=== PATIENT | male | born 1965 | race Caucasian/White ===

== ENCOUNTER 2018-12-12 13:38 | Inpatient (IN) | payer MEDICAID ==
[~2018-12-12] VITALS: Ht 188 cm; Wt 150.0 kg
[2018-12-14 14:53] VITALS: BP 160/89
== END 2018-12-14 15:41 | disposition left against medical advice (07) | DRG 280 ==
LOC: ED 14:25 → EDIP 15:19 → 5SO 17:06
PROVIDERS: ADMIT Internal Medicine; ATTEND Internal Medicine
PROC: 02HV33Z Insertion of Infusion Device into Superior Vena Cava, Percutaneous Approach (ICD-10-PCS; principal; 2018-12-12)
PROC: B5181ZA Fluoroscopy of Superior Vena Cava using Low Osmolar Contrast, Guidance (ICD-10-PCS; 2018-12-12)
PROC: B548ZZA Ultrasonography of Superior Vena Cava, Guidance (ICD-10-PCS; 2018-12-12)
DX: I11.0 Hypertensive heart disease with heart failure (principal); I21.A1 Myocardial infarction type 2; J96.01 Acute respiratory failure with hypoxia; D68.59 Other primary thrombophilia; I48.92 Unspecified atrial flutter; N17.9 Acute kidney failure, unspecified; I50.43 Acute on chronic combined systolic (congestive) and diastolic (congestive) heart failure; E03.9 Hypothyroidism, unspecified; E11.65 Type 2 diabetes mellitus with hyperglycemia; E66.01 Morbid (severe) obesity due to excess calories; Z71.3 Dietary counseling and surveillance; E87.6 Hypokalemia; F10.10 Alcohol abuse, uncomplicated; Y90.9 Presence of alcohol in blood, level not specified; F15.90 Other stimulant use, unspecified, uncomplicated; F17.210 Nicotine dependence, cigarettes, uncomplicated; I48.91 Unspecified atrial fibrillation; Z76.5 Malingerer [conscious simulation]; Z91.14 Patient's other noncompliance with medication regimen
CPT/HCPCS: 36415; 36573; 36600; 71045; 80048; 80053; 80061; 80307; 81003; 82803; 82962; 83036; 83735; 83880; 84100; 84439; 84443; 84484; 85025; 85520; 85610; 93005; 93306; 99285; G0378; J1644; J1940; C1751; J1815

== ENCOUNTER 2019-03-13 15:50 | Inpatient (IN) | payer MEDICAID ==
[~2019-03-13] VITALS: Ht 188 cm; Wt 150.5 kg
[~2019-03-13 15:50] MED LIST: LEVO200T5 PO; LISI-170 PO; LISI40TA PO
--- NOTE | 2019-03-13 16:00 | NUR ---
THIS IS A 53 YO MALE BIB [facility] C/O WORSENING SOB OVER THE LAST MONTH. PT WAS ADMITTED TO [facility] ON 03/01 AND LEFT AMA. PT WAS DX'D WITH CHF AND HAS HX OF COPD. PER EMS PT WAS IN 150'S POSS A-FLUTTER EN ROUTE AND SELF-CONVERTED. 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 PT HAS AUDIBLE WHEEZING WITH DIMINSHED LUNGS T/O. PT ADMITS TO USING METH THIS AM. PT AO X 4. SKIN PWD. RESP SLIGHT SHALLOW BUT UNLABORED. PT ABLE TO SPEAK IN 5-10 WORD SENTENCES W/O DIFFICULTY AT REST BUT EASILY BECOMES SOB WITH ACTIVITY. PT ON CONT BP, CARDIAC AND O2 MONITORS. CALL LIGHT WITHIN REACH. WILL CONT TO ISHA PT.
[2019-03-13] MEDS ORDERED: ALBUTEROL/IPRATROPIUM 2.5MG/0.5MG, 3 ML ONE (16:24)
[2019-03-13] MEDS ORDERED: SODIUM CHLORIDE FLUSH 10ML SYR IVF ONE (16:30)
[2019-03-13] MEDS ORDERED: ALBUTEROL/IPRATROPIUM 2.5MG/0.5MG, 3 ML NPPB ONE (16:30)
[2019-03-13] MEDS ORDERED: methylPREDNISolone SOD SUCC 125 MG/2 ML IV ONE (16:30)
[2019-03-13] MEDS ORDERED: methylPREDNISolone SOD SUCC 125 MG/2 ML ONE (16:49)
--- NOTE | 2019-03-13 17:18 | NUR ---
PT HAD AN EPISODE OF 140'S ST RHYTHM PT AGAIN SELF-CONVERTED TO 80'S NSR. GRECIA LEVY AWARE, NO NEW ORDERS RECIEVED. UNABLE TO GET IV WITH MX ATTEMPTS. PT REFUSED ANY MORE IV ATTEMPTS AND LABS AT THIS TIME. GRECIA LEVY MADE AWARE. PT MEDIATED WITH ORAL STEROIDS. PT REPORTS SOME IMPROVEMENT AFTER BREATHING TREATMENT. WILL COTN TO MONITOR PT.
[2019-03-13] MEDS ORDERED: DILTIAZEM 5 MG/ML, 5ML ONE ×2 (17:54→19:22)
[2019-03-13] MEDS ORDERED: DILTIAZEM 5 MG/ML, 5ML IV ONE (18:00)
[2019-03-13 18:03] LABS: BASOPHILS # (AUTO) 0.03 x10^3/uL (0-0.1); BASOPHILS % (AUTO) 1 % (0-1); EOSINOPHILS # (AUTO) 0.18 x10^3/uL (0-0.4); EOSINOPHILS % (AUTO) 2 % (1-7); LYMPHOCYTES # (AUTO) 1.26 x10^3/uL (1-3.4); LYMPHOCYTES % (AUTO) 17 % (22-44); MD NO; MEAN CORPUSCULAR HEMOGLOBIN 30.2 pg (27.5-34.5); MEAN CORPUSCULAR HGB CONC 32.8 g/dL (33.2-36.2); MEAN CORPUSCULAR VOLUME 92.1 fL (81-97); MEAN PLATELET VOLUME 7.9 fL (7.4-10.4); MONOCYTES # (AUTO) 0.68 x10^3/uL (0.2-0.8); MONOCYTES % (AUTO) 9 % (2-9); NEUTROPHILS # (AUTO) 5.31 x10^3/uL (1.8-6.8); NEUTROPHILS % (AUTO) 71 % (42-75); PLATELET COUNT 338 x10^3/uL (130-400); RED BLOOD COUNT 3.86 x10^6/uL (4.38-5.82); RED CELL DISTRIBUTION WIDTH 16.6 % (9.4-14.8)
--- NOTE | 2019-03-13 18:03 | NUR ---
PT CONTINUES TO GO IN AND OUT OF TACHY RHYTHM. 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 DISCUSSED WITH GRECIA LEVY AND IV ACCESS ESTABLISHED WITH PT'S PERMISSION AND PT MEDICATED ORDERED. PT NOW NSR 80'S ON CHURCH BUSINESS ADMINISTRATOR. PT AO X 4. SKIN PWD. RESP SLIGHTLY SHALLOW BUT EVEN AND EQUAL. PT ABLE TO SPEAK IN 5-7 WORD SENTENCES W/O DIFFICULTY. PT ON CONT BP, CARDIAC AND O2 MONITORS. CALL LIGHT WITHIN REACH. WILL CONT TO MONITOR PT.
[2019-03-13 18:18] LABS: ALBUMIN 3.7 g/dL (3.4-5.0); ANION GAP 5 mmol/L (5-15); CALCIUM 8.4 mg/dL (8.5-10.1); CHLORIDE 106 mmol/L (98-107)
[2019-03-13 18:24] LABS: ALANINE AMINOTRANSFERASE 38 U/L (12-78); ALKALINE PHOSPHATASE 92 U/L (45-117); BILIRUBIN,TOTAL 0.5 mg/dL (0.2-1.0); CREATININE 1.52 mg/dL (0.7-1.3); TOTAL PROTEIN 7.4 g/dL (6.4-8.2); TROPONIN I 0.031 ng/mL (0.000-0.045)
--- NOTE | 2019-03-13 18:31 | NUR ---
ASSUMED CARE OF PATIENT. REPORT RECEIVED FROM KEVIN RODGERS. PATIENT TRANSFERED TO ROOM 19.
--- NOTE | 2019-03-13 19:26 | NUR ---
PT WITH HR TO 145 AND GIVEN DILT 20 MG. PT NOW WITH HR AT 85. PT PLACED ON 2L NC O2 DUE TO PSO2 IN THE LOW 90'S.
[2019-03-13] MEDS ORDERED: DILTIAZEM 5 MG/ML, 5ML IVPush ONE (19:30)
[2019-03-13] MEDS ORDERED: SODIUM CHLORIDE FLUSH 10ML SYR IVF PRN (20:30)
--- NOTE | 2019-03-13 20:31 | NUR ---
PT RESTING IN NO DISTRESS WITH VSS AND NC IN PLACE AT 2L
[2019-03-13] MEDS ORDERED: ACETAMINOPHEN 325 MG TABLET PO PRN (21:00)
[2019-03-13] MEDS ORDERED: GABAPENTIN 300 MG CAPSULE PO PRN (21:00)
[2019-03-13] MEDS ORDERED: ONDANSETRON 2MG/ML, 2ML IVPush PRN (21:00)
[2019-03-13] MEDS ORDERED: hydrALAzine 20 MG/ML, 1ML IVPush PRN (21:00)
--- NOTE | 2019-03-13 21:08 | NUR ---
REPORT CALLED TO FLOOR PT READY TO GO TO FLOOR.
[2019-03-13] MEDS: FUROSEMIDE 20 MG/2 ML IV SCH (21:39)
[2019-03-13] MEDS: ENOXAPARIN 150 MG/ML SQ SCH (21:40)
[2019-03-13] MEDS: DILTIAZEM 5 MG/ML, 5ML IVPush PRN ×2 (21:58→22:24)
[2019-03-13 22:06] LABS: FREE T4 (FREE THYROXINE) 0.68 ng/dL (0.76-1.46)
[2019-03-13 22:31] LABS: MICROSCOPIC NOT IND
[2019-03-13 22:37] LABS: CULTURE INDICATED? NO
[2019-03-13 22:42] VITALS: BP 134/97
[2019-03-13 22:43] LABS: AMPHETAMINE SCREEN, URINE Positive (Negative); BARBITURATE SCREEN, URINE Negative (Negative); BENZODIAZEPINE SCREEN, URINE Negative (Negative); CANNABINOID SCREEN, URINE Negative (Negative); COCAINE SCREEN, URINE Negative (Negative); METHADONE SCREEN, URINE Negative (Negative); OPIATE SCREEN, URINE Negative (Negative)
[2019-03-13] MEDS ORDERED: ALBUTEROL SULFATE 2.5 MG/3 ML NPPB PRN (23:00)
[2019-03-13] MEDS: LISINOPRIL 10 MG TABLET PO SCH (23:37)
[2019-03-14 03:54] VITALS: BP 171/118
[2019-03-14 04:33] LABS: BASOPHILS # (AUTO) 0.01 x10^3/uL (0-0.1); BASOPHILS % (AUTO) 0 % (0-1); EOSINOPHILS % (AUTO) 0 % (1-7); LYMPHOCYTES % (AUTO) 8 % (22-44); MD NO; MEAN CORPUSCULAR HEMOGLOBIN 30.1 pg (27.5-34.5); MEAN CORPUSCULAR HGB CONC 32.9 g/dL (33.2-36.2); MEAN CORPUSCULAR VOLUME 91.3 fL (81-97); MEAN PLATELET VOLUME 8.4 fL (7.4-10.4); MONOCYTES # (AUTO) 0.11 x10^3/uL (0.2-0.8); MONOCYTES % (AUTO) 2 % (2-9); NEUTROPHILS # (AUTO) 6.04 x10^3/uL (1.8-6.8); NEUTROPHILS % (AUTO) 91 % (42-75); PLATELET COUNT 356 x10^3/uL (130-400); RED BLOOD COUNT 3.87 x10^6/uL (4.38-5.82); RED CELL DISTRIBUTION WIDTH 16.6 % (9.4-14.8)
[2019-03-14 04:42] LABS: ANION GAP 8 mmol/L (5-15); CALCIUM 8.5 mg/dL (8.5-10.1); CHLORIDE 103 mmol/L (98-107); CREATININE 1.48 mg/dL (0.7-1.3)
[2019-03-14] MEDS: LEVOTHYROXINE 200 MCG TABLET PO SCH (05:29)
[2019-03-14 08:00] VITALS: BP 139/89
[2019-03-14] MEDS: ENOXAPARIN 150 MG/ML SQ SCH ×2 (08:38→21:24)
[2019-03-14] MEDS: FUROSEMIDE 20 MG/2 ML IV SCH ×2 (08:38→16:41)
[2019-03-14 12:34] VITALS: BP 142/90
[2019-03-14] MEDS: DILTIAZEM 5 MG/ML, 5ML IVPush PRN ×2 (12:52→15:44)
[2019-03-14] MEDS ORDERED: ATOR40TA78 PO (12:57)
[2019-03-14] MEDS ORDERED: FURO40TA6 PO (12:57)
[2019-03-14] MEDS ORDERED: POTA20TA14 PO (12:57)
[2019-03-14] MEDS ORDERED: LISI40TA PO (12:57)
[2019-03-14] MEDS ORDERED: SPIR25TA5 PO (12:57)
[2019-03-14] MEDS ORDERED: CARV3.122 PO (12:57)
[2019-03-14] MEDS: CARVEDILOL 6.25 MG TABLET PO SCH ×2 (15:44→23:18)
[2019-03-14] MEDS: INSULIN LISPRO 100 UNITS/ML, PEN SQ-INSULIN SCH ×2 (16:42→21:34)
[2019-03-14] MEDS ORDERED: ATORVASTATIN 40 MG TABLET PO SCH (21:00)
[2019-03-14 21:18] VITALS: BP 151/94
[2019-03-14] MEDS: LISINOPRIL 10 MG TABLET PO SCH (21:23)
[2019-03-15 00:43] VITALS: BP 151/90
[2019-03-15] MEDS: LEVOTHYROXINE 200 MCG TABLET PO SCH (06:39)
[2019-03-15] MEDS: CARVEDILOL 6.25 MG TABLET PO SCH (06:39)
[2019-03-15] MEDS ORDERED: CARV6.2512 PO (07:41)
[2019-03-15] MEDS ORDERED: ALBU8.5H8 INH (07:41)
[2019-03-15 08:03] VITALS: BP 164/115
[2019-03-15] MEDS: INSULIN LISPRO 100 UNITS/ML, PEN SQ-INSULIN SCH (08:05)
[2019-03-15] MEDS: FUROSEMIDE 20 MG/2 ML IV SCH (08:06)
[2019-03-15] MEDS ORDERED: SPIRONOLACTONE 25 MG TABLET PO SCH (09:00)
[2019-03-15] MEDS ORDERED: POTASSIUM CHLORIDE 20 MEQ TAB.ER.PRT PO SCH (09:00)
[2019-03-15] MEDS ORDERED: LISINOPRIL 40 MG TABLET PO SCH (09:00)
[2019-03-15 09:56] VITALS: BP 146/87
[2019-03-15] MEDS: ENOXAPARIN 150 MG/ML SQ SCH (10:00)
== END 2019-03-15 11:31 | disposition home or self-care (01) | DRG 308 ==
LOC: ED 19:34 → EDIP 21:04 → 5SO 21:21
PROVIDERS: ADMIT Family Medicine; ATTEND Family Medicine
DX: I48.92 Unspecified atrial flutter (principal); I50.23 Acute on chronic systolic (congestive) heart failure; J44.1 Chronic obstructive pulmonary disease with (acute) exacerbation; D68.69 Other thrombophilia; Z68.41 Body mass index [BMI] 40.0-44.9, adult; I11.0 Hypertensive heart disease with heart failure; D64.9 Anemia, unspecified; E03.9 Hypothyroidism, unspecified; E11.65 Type 2 diabetes mellitus with hyperglycemia; E66.01 Morbid (severe) obesity due to excess calories; F15.10 Other stimulant abuse, uncomplicated; I71.2 Thoracic aortic aneurysm, without rupture; F17.210 Nicotine dependence, cigarettes, uncomplicated; F41.9 Anxiety disorder, unspecified; G47.30 Sleep apnea, unspecified; I48.91 Unspecified atrial fibrillation; I25.2 Old myocardial infarction; Z91.14 Patient's other noncompliance with medication regimen; Z91.19 Patient's noncompliance with other medical treatment and regimen
CPT/HCPCS: 36415; 96374; 96376; 99291; J7620; 71045; 80048; 80053; 80307; 81003; 82962; 83036; 83880; 84439; 84443; 84484; 85025; 93005; 93308; 93321; 93325; 94640; G0378; J1650; J0360; J1815; J1940; J7512